=== PATIENT | male | born 1980 | race Caucasian/White ===

== ENCOUNTER 2017-07-10 19:49 | Emergency (ER) | payer SELFPAY ==
[~2017-07-10] VITALS: Ht 182.9 cm; Wt 178.7 kg
[2017-07-10 20:06] VITALS: BP 187/105
== END 2017-07-10 21:00 | disposition home or self-care (01) ==
LOC: ER 19:53
DX: M25.511 Pain in right shoulder (principal); I10 Essential (primary) hypertension
CPT/HCPCS: A4606; Z7502; Z7610